=== PATIENT | male | born 1955 ===

== ENCOUNTER 2022-04-28 08:10 | Outpatient (REF) | payer MEDICARE, SELFPAY ==
--- NOTE | ~2022-04-28 | XR_ITS ---
EXAMINATION: XR KNEE AP STANDING CLINICAL INFORMATION: Bilateral knee pain COMPARISON: None TECHNIQUE: AP bilateral standing and lateral view of the knees was obtained. FINDINGS: Right: There is varus angulation. Bone alignment is otherwise normal. There is significant joint space narrowing at the medial femoral tibial joint. There is no joint effusion. Left: Bone alignment is normal. No fracture or dislocation is seen. There is joint space narrowing at the medial femoral tibial joint. There is no joint effusion. XR/XR knee standing BI IMPRESSION: Right: Varus angulation and marked joint space narrowing at the medial femoral tibial joint. Left: Moderate joint space narrowing at the femoral tibial joint.
[2022-04-28 11:35] LABS: MANUAL DIFF FLAG NO
[2022-04-28 11:45] LABS: Basophils Absolute Auto 0.1 X10*3/uL (0.0-0.2); Eosinophils Absolute Auto 0.2 X10*3/uL (0.0-0.4); Eosinophils Percent Auto 3.3 % (0-4); Hematocrit 44.4 % (42.0-52.0); Imm Gran Abs Auto 0.01 X10*3/uL (0.00-0.03); Imm Gran Pct Auto 0.1 % (0.0-0.4); Lymphocytes Percent Auto 42.5 % (20-40); Mean Corpuscular HGB Conc 31.5 g/dl (31.0-36.0); Mean Corpuscular Hemoglobin 28.5 pg (27.0-33.0); Mean Corpuscular Volume 90.2 fL (80.0-98.0); Mean Platelet Volume 10.4 fL (9.4-12.4); Monocytes Absolute Auto 0.5 X10*3/uL (0.1-1.2); Monocytes Percent Auto 6.5 % (2-11); Neutrophils Absolute Auto 3.2 x10*3/uL (2.0-8.3); Neutrophils Percent Auto 46.6 % (45-73); Platelet Count 238 X10*3/uL (160-400); Red Blood Count 4.92 X10*6/uL (4.60-5.80); Red Cell Distribution Width 12.8 % (11.0-16.0); White Blood Count 6.9 X10*3/uL (4.8-10.8)
[2022-04-28 11:47] LABS: Appearance Urine CLEAR; Color Urine YELLOW; Glucose Urine UA NEG (NEG); Leukocyte Esterase Urine NEG (NEG); Nitrite Urine NEG (NEG); PH 5.5 (5.0-8.0); Specific Gravity - Urine 1.025 (1.005-1.025); Urine Blood NEG (NEG); Urine Ketones NEG (NEG); Urine Protein NEG (NEG-TRACE)
[2022-04-28 12:28] LABS: Alanine Aminotransferase 17 U/L (0-40); Albumin Level 3.8 g/dL (3.5-5.0); Alkaline Phosphatase 63 U/L (39-117); Anion Gap 13 (12-20); Aspartate Amino Transferase 17 U/L (5-37); Bilirubin Total 0.6 mg/dL (0.0-1.0); Blood Urea Nitrogen 17 mg/dL (9-16); Calcium 8.9 mg/dL (8.4-10.2); Carbon Dioxide 25 mmol/L (22-29); Chloride 106 mmol/L (96-108); Cholesterol 217 mg/dL; Estimated Glomerular Filt Rate > 60; Glucose Fasting 99 mg/dL (60-99); HDL Cholesterol 51 mg/dL; LDL Cholesterol Calculated 133 mg/dl; Potassium 4.8 mmol/L (3.3-5.1); Sodium 139 mmol/L (135-145); Total Protein 6.8 g/dL (6.5-8.0); Triglycerides 168 mg/dL
[2022-04-28 12:29] LABS: Prostate Specific Antigen Scr 0.63 ng/mL (<0.05-4.0); TSH reflex Free T4 3.14 uIU/mL (0.32-4.0)
== END 2022-04-28 08:11 | disposition home or self-care (01) ==
LOC: HO.HMGCX 08:10
PROVIDERS: PCP Nurse Practitioner Family; Visit Provider Nurse Practitioner Family
DX: Z12.5 Encounter for screening for malignant neoplasm of prostate (principal); M25.562 Pain in left knee; I10 Essential (primary) hypertension
CPT/HCPCS: 36415; 73565; 80053; 80061; 81003; 84153; 84443; 85025

== ENCOUNTER → 2022-06-20 13:41 | Outpatient (REF) | payer MEDICARE, MEDICAID, SELFPAY ==
--- NOTE | 2022-06-20 13:49 | CA_ITS ---
Transthoracic Echocardiogram Patient (Last, First, Middle): Erik Banda, Gender: Male Date of : 1955 Age: 66 Procedure Date: 06/20/2022 Procedure Type: Transthoracic Echocardiogram Location: OP Height: 180.34 cm Weight: 126.1 kg BSA: 2.43 m2 Heart Rate: bpm BP: 130 / 70 mmHg Leaflet Distributor: TO Referring MD: Christopher Hill [facility] Symptoms: R01.1 - Cardiac murmur, unspecified Study Quality: Technically Difficult Conclusions: - Normal left ventricular size, thickness, and systolic function. The visually estimated ejection fraction is between 55-60%. - The basal inferior segment is akinetic. - Normal right ventricular cavity size and systolic function. Findings Left Ventricle Normal left ventricular size, thickness, and systolic function. The visually estimated ejection fraction is between 55-60%. There is evidence of regional wall motion abnormalities. Diastolic function is normal for age. Wall Motion Rest Echo Findings The basal inferior segment is akinetic. Right Ventricle Normal right ventricular cavity size and systolic function. Atria The left atrium is likely dilated. The right atrium is normal in size. Aortic Valve There is a normal trileaflet aortic valve. There is mild calcification of the aortic valve. There is no aortic valve stenosis. There is no aortic valve regurgitation. Mitral Valve Normal mitral valve structure and function. There is no mitral valve regurgitation. There is no mitral valve stenosis. Pulmonic Valve The pulmonic valve is likely normal. Tricuspid Valve Normal tricuspid valve structure and function. There is trace tricuspid valve regurgitation. Tricuspid regurgitation envelope is inadequate for calculation of right ventricular systolic pressure. Normal right atrial pressure. Great Vessels All visible segments of the aorta are normal in size. The visualized portions of the pulmonary artery and branches are normal. Venous The inferior vena cava is normal in size and collapses greater than 50% with inspiration. Pericardium/Pleural There is no evidence of pericardial effusion. Prior Study Comparison No prior study available for comparison. Measurements 2D Linear Measurements IVSd: 1.23 0.6-0.9/0.6-1.0 cm LVIDd: 4.63 3.9-5.3/4.2-5.9 cm LVIDd Index: 1.91 2.4-3.2/2.2-3.1 cm/m2 LVIDs: 2.86 2.0-3.6 cm LVPWd: 1.05 0.7-1.1 cm LA Diam: 3.50 2.7-3.8/3.0-4.0 cm LAIDs Index: 1.44 1.5-2.3 cm/m2 LV Mass: 239.91 67-162/88-224 g LV Mass Index: 98.73 43-95/49-115 g/m2 LVOT Diam: 2.20 3.0+(-)1.3 cm 2D Systolic Function EF 4C: 62.60 >55% EF 2C: 54.20 >55% EF BiP: 59.70 >55% Mitral Valve MV Pk E: 0.70 MV PK A: 0.75 MV Decel Time: 226.00 E/A: 0.90 E'Lateral: 11.70 E'Medial: 7.51 E/E' Med: 9.30 E/E' Lat: 6.00 PHT: 66.00 MVA PHT: 3.33 Decel [place]: 3.09 Aortic Valve AoV Pk Richard: 1.79 AoV Mn Richard: 1.31 AoV VTI: 0.37 AoV Pk Grad: 13.00 Aov Mn Grad: 7.00 IAIN Cont.VTI: 2.18 LVOT LVOT Pk Richard: 1.04 LVOT Mn Richard: 0.67 LVOT VTI: 0.21 LVOT Pk Grad: 4.00 LVOT Mn Grad: 2.00 LVOT Diam: 2.20 LVOT Area: 3.80 Diastolic Function MV Pk E: 0.70 MV Pk A: 0.75 E/A: 0.90 E'Medial: 7.51 E/E' Med: 9.30 E' Laterial: 11.70 E/E' Lat: 6.00 Right Ventricle TAPSE (mm): 24.40 TVS' Richard: 10.10 Tricuspid Valve TR Pk Richard: 2.14 TR Pk Grad: 18.00 RA Press: 3.00 Great Vessels Aorta Sinus of Valsalva: 3.53 2.0-3.5 cm Ao Asc: 3.20 2.1-3.4 cm Updated in Other Vendor System with Status of Final Benny Saunders MD electronically signed on 06/22/2022 6:10:24 PM with status of Final
== END ==
LOC: HO.CARD 13:41
PROVIDERS: PCP Nurse Practitioner Family; Visit Provider Nurse Practitioner Family
DX: R01.1 Cardiac murmur, unspecified (principal)
CPT/HCPCS: 93306; Q9957

== ENCOUNTER → 2022-07-03 11:37 | Outpatient (BNVA) | payer MEDICARE, SELFPAY | PROVIDERS: PCP Nurse Practitioner Family; Referring Provider Nurse Practitioner Family; Visit Provider Nurse Practitioner Family | DX: Z01.818 Encounter for other preprocedural examination (principal) | CPT/HCPCS: 99202; 99212 ==

== ENCOUNTER 2022-08-25 06:31 | Outpatient (REF) | payer MEDICARE, SELFPAY ==
--- NOTE | ~2022-08-25 | XR_ITS ---
EXAMINATION: BILATERAL KNEE X-RAY CLINICAL INFORMATION: Pain COMPARISON: Previous x-ray April 2022 TECHNIQUE: [place] view of both knees FINDINGS: Bone alignment is normal. No fracture or dislocation. The joint spaces appear normal. Normal soft tissues. XR/XR knee LT 1V IMPRESSION: Normal sunrise view of both knees.
--- NOTE | ~2022-08-25 | XR_ITS ---
EXAMINATION: BILATERAL KNEE X-RAY CLINICAL INFORMATION: Pain COMPARISON: Previous x-ray April 2022 TECHNIQUE: [place] view of both knees FINDINGS: Bone alignment is normal. No fracture or dislocation. The joint spaces appear normal. Normal soft tissues. XR/XR knee RT 1V IMPRESSION: Normal sunrise view of both knees.
== END 2022-08-25 06:32 | disposition home or self-care (01) ==
LOC: HO.HOSX 06:31
PROVIDERS: Visit Provider Physician Assistant
DX: M17.0 Bilateral primary osteoarthritis of knee (principal)
CPT/HCPCS: 73560; 99202

== ENCOUNTER 2022-11-07 07:55 | Outpatient (REF) | payer MEDICARE, SELFPAY ==
[2022-11-07 11:26] LABS: MANUAL DIFF FLAG NO
[2022-11-07 11:28] LABS: Appearance Urine Clear; Color Urine Yellow; Glucose Urine UA Negative (Negative); Leukocyte Esterase Urine Negative (Negative); Nitrite Urine Negative (Negative); Specific Gravity - Urine 1.015 (1.005-1.025); Urine Blood Negative (Negative); Urine Ketones Negative (Negative); Urine Protein Negative (Neg-Trace)
[2022-11-07 11:29] LABS: Basophils Absolute Auto 0.1 X10*3/uL (0.0-0.2); Basophils Percent Auto 1.2 % (0-2); Eosinophils Absolute Auto 0.2 X10*3/uL (0.0-0.4); Eosinophils Percent Auto 2.7 % (0-4); Hematocrit 44.6 % (42.0-52.0); Hemoglobin 14.1 g/dl (14.0-18.0); Imm Gran Abs Auto 0.01 X10*3/uL (0.00-0.03); Imm Gran Pct Auto 0.1 % (0.0-0.4); Lymphocytes Absolute Auto 2.9 X10*3/uL (1.2-4.9); Mean Corpuscular HGB Conc 31.6 g/dl (31.0-36.0); Mean Corpuscular Hemoglobin 28.6 pg (27.0-33.0); Mean Corpuscular Volume 90.5 fL (80.0-98.0); Mean Platelet Volume 10.5 fL (9.4-12.4); Monocytes Absolute Auto 0.5 X10*3/uL (0.1-1.2); Monocytes Percent Auto 6.1 % (2-11); Neutrophils Absolute Auto 3.8 x10*3/uL (2.0-8.3); Neutrophils Percent Auto 50.9 % (45-73); Platelet Count 237 X10*3/uL (160-400); Red Blood Count 4.93 X10*6/uL (4.60-5.80); Red Cell Distribution Width 12.9 % (11.0-16.0); White Blood Count 7.5 X10*3/uL (4.8-10.8)
[2022-11-07 12:17] LABS: Alanine Aminotransferase 14 U/L (0-40); Albumin Level 3.8 g/dL (3.5-5.0); Alkaline Phosphatase 68 U/L (39-117); Anion Gap 13 (12-20); Aspartate Amino Transferase 16 U/L (5-37); Bilirubin Total 0.6 mg/dL (0.0-1.0); Blood Urea Nitrogen 16 mg/dL (9-16); Calcium 8.8 mg/dL (8.4-10.2); Carbon Dioxide 26 mmol/L (22-29); Chloride 106 mmol/L (96-108); Cholesterol 186 mg/dL; Estimated Glomerular Filt Rate > 60; Glucose Fasting 100 mg/dL (60-99); HDL Cholesterol 57 mg/dL; LDL Cholesterol Calculated 101 mg/dl; Sodium 141 mmol/L (135-145); Total Protein 6.7 g/dL (6.5-8.0); Triglycerides 140 mg/dL
[2022-11-07 12:37] LABS: TSH reflex Free T4 3.48 uIU/mL (0.32-4.0)
== END 2022-11-07 07:56 | disposition home or self-care (01) ==
LOC: HO.HMGCLDS 07:55
PROVIDERS: PCP Nurse Practitioner Family; Visit Provider Nurse Practitioner Family
DX: I10 Essential (primary) hypertension (principal); E78.5 Hyperlipidemia, unspecified
CPT/HCPCS: 36415; 80053; 80061; 81003; 84443; 85025

== ENCOUNTER 2022-11-28 11:24 | Day surgery (SDC) | payer MEDICARE, SELFPAY ==
[2022-11-24 10:10] VITALS: BMI 40.8
--- NOTE | 2022-11-27 10:29 | HO.ANESPROP2 ---
Documented by User: Adelaide Juarez NP 11/27/22 10:33 HPI - Anesthesia Eval Consult details Narrative: 67yo M for Colonoscopy PMFSH Active Problems Active Problems: All Active Problems (Updated 11/24/22 @ 10:07 by Batsheva Gardner RN) HTN (hypertension) (Acute) Screening for prostate cancer (Acute) Screening for colon cancer (Acute) Murmur (Acute) Knee pain (Acute) Dyslipidemia (Acute) Osteoarthritis of knees, bilateral (Acute) Pre-op evaluation (Acute) Past Medical History Medical History (Updated 11/24/22 @ 10:07 by Batsheva Gardner RN) Elevated cholesterol HTN (hypertension) Murmur Osteoarthritis Family History Family History Mother Diabetes Brother Diabetes Heart attack Father Heart attack Surgical History Surgical History (Updated 11/28/22 @ 11:44 by Carmela Cardona RN) H/O colonoscopy Hx of tracheostomy Social History Social History Housing: Other (mobile home) Patient Tobacco Use Status: Never used Tobacco e-Cigarette/Vaping Use: Never Used Second Hand Smoke Exposure: No Use of substances other than those prescribed or required for medical reasons: No Are you DNR?: No Advance Directives: No Advance Directives Information Provided: Yes service: No Current occupational status: employed Current occupation: deliver [employer] Cognitive needs: No Hearing needs: No Vision needs: Yes Meds Allergies Allergy/AdvReac Type Severity Reaction Status Date / Time No Known Allergies Allergy Verified 11/05/22 13:10 Exam Exam Date and Time: November 27, 2022 1029 Height,Weight and Vital Signs: Height 5 ft 10 in Weight 129.274 kg Pertinent Lab Results Pertinent Lab Results: Laboratory Tests 11/07/22 11/07/22 08:00 08:00 WBC 7.5 Hgb 14.1 Hct 44.6 Plt Count 237 Sodium 141 Potassium 4.0 Chloride 106 Carbon Dioxide 26 BUN 16 Creatinine 0.85 Narrative Narrative: ECHO 06/2022 Conclusions: - Normal left ventricular size, thickness, and systolic function. The visually estimated ejection fraction is between 55-60%.? ? ? - The basal inferior segment is akinetic.? - Normal right ventricular cavity size and systolic function.? ? EKG 09/2022 NSR @ 67 Poor R wave progression No ST-T changes Assessment and Plan Assessment Anesthesia Assessment: Chart Reviewed Documented by User: Lazara Hu MD 11/28/22 12:43 PMFSH Past Medical History Medical History (Updated 11/24/22 @ 10:07 by Batsheva Gardner RN) Elevated cholesterol HTN (hypertension) Murmur Osteoarthritis Family History Family History Mother Diabetes Brother Diabetes Heart attack Father Heart attack Family history of problems with anesthesia: No Surgical History Surgical History (Updated 11/28/22 @ 11:44 by Carmela Cardona RN) H/O colonoscopy Hx of tracheostomy History of Problems with Anesthesia: No Social History Social History Housing: Other (mobile home) Patient Tobacco Use Status: Never used Tobacco e-Cigarette/Vaping Use: Never Used Second Hand Smoke Exposure: No Use of substances other than those prescribed or required for medical reasons: No Are you DNR?: No Advance Directives: No Advance Directives Information Provided: Yes service: No Current occupational status: employed Current occupation: [employer] Cognitive needs: No Hearing needs: No Vision needs: Yes Meds Allergies Allergy/AdvReac Type Severity Reaction Status Date / Time No Known Allergies Allergy Verified 11/05/22 13:10 Exam Airway Mallampati Class: III TM Dist: >3cm Neck ROM: Full Heart: rrr Lungs: cta Assessment and Plan Assessment Anesthesia Assessment: Anesthesia Plan Discussed Final Anesthetic Review Family History of Problems with Anesthesia: No History of Problems with Anesthesia: No NPO: Yes ASA Class: III Final Preanesthetic Review: No Changes in Pt Med Stat, Meds/Allgs Chart Reviewed, Consent Obtained/Reviewed and Anes Risks/Benef Reviewed Patient Risk: Intermediate Procedure Risk: Low Anesthetic Plan Anesthetic Plan: MAC: and Agree w/ Assess. and Plan Disposition: Standard PACU
[2022-11-28 11:47] VITALS: BMI 39.4
[2022-11-28 11:50] VITALS: BMI 39.4
[2022-11-28 11:51] VITALS: BP 133/76; PULSE 81; RESP 18; TEMP 36.2; O2SAT 98
--- NOTE | 2022-11-28 12:03 | MHC.SHP ---
Pre-Procedural Eval Section A Date of Service: 11/28/22 The patient is an INPATIENT: No The History & Physical has been completed within 30 days and I have reviewed it.: No Section B Chief Complaint: screening Details of Present Illness: Colon cancer screening Relevant Family History (Specify if Yes): No Relevant Social History: None Present Medications: see Short Stay Collaborative assessment Medical History: Significant History (Hyperlipidemia, hypertension, osteoarthritis) History of Previous Operations: Relevant previous surgery/procedure and date(s) (History of colonoscopy, history of tracheostomy) Allergies: Allergies Allergy/AdvReac Type Severity Reaction Status Date / Time No Known Allergies Allergy Verified 11/05/22 13:10 Review of Systems Sugical H&P ROS: Negative: Constitution, Cardiovascular, Respiratory and Gastrointestinal Exam Surgical H&P Exam: Normal: Heart, Normal: Lungs, Normal: Extremities and Normal: Abdomen Plan Diagnosis/Plan: Unchanged I have reviewed the history and physical and performed a pertinent physical examination on my patient. No changes have occurred unless specified. Time Spent With Patient Time: Total time managing care of this patient today ____ minutes.
--- NOTE | 2022-11-28 12:10 | PM.OP ---
Brief Operative Note Date of Service: 11/28/22 Pre-op diagnosis: COLON CANCER SCREENING Post-op diagnosis: other (COLON POLYPS, DIVERTICULOSIS, HEMORRHOIDS) Procedure: COLONOSCOPY TILL CECUM WITH BIOPSIES, SNARE POLYPECTOMY, SUBMUCOSAL INJECTION AND HEMOCLIP PLACEMENT Surgeon: Nathan Borges MD Anesthesia: MAC Was an Superintendent Greens used for this Procedure?: Yes Superintendent Greens: Karol Oreilly Estimated blood loss (mL): 0 Pathology: other ( A. cecal polyp B. proximal ascending colon polyp C. distal ascending colon polyp @ 80 cms D. transverse colon polyps (3)) Condition: stable Disposition: PACU
--- NOTE | 2022-11-28 12:10 | W.PM.OPN ---
Operative Note Operative Note Date of Service: 11/28/22 Narrative: Pre-op diagnosis: COLON CANCER SCREENING Post-op diagnosis:?other (COLON POLYPS, DIVERTICULOSIS, HEMORRHOIDS) Surgeon: Nathan Borges MD Anesthesia:?MAC COLONOSCOPY TILL CECUM WITH BIOPSIES, SNARE POLYPECTOMY, SUBMUCOSAL INJECTION AND HEMOCLIP X 3 PLACEMENT Consent: Indications for the procedure and potential complications of bleeding, perforation, reaction to medications and missed diagnosis were discussed with the patient and informed consent was obtained. Instrument: Olympus PCF H 190 L variable stiffness pediatric colonoscope Monitoring: Vital signs and clinical assessment, intermittent blood pressure monitoring, continuous EKG monitoring, Pulse oximetry and Carbon Dioxide monitoring were done throughout the procedure. Colon withdrawl time was 41 minutes. Procedure: The patient was placed in the left lateral decubitis position and pre-procedure medications were administered. After a digital rectal examination of the ano-rectum, the video colonoscope was inserted into the rectum and advanced through the colon to the cecum. The colonoscope was slowly withdrawn in a retrograde panoramic fashion and the colon mucosa was carefully examined including a retroflexed view of the rectum. Findings and interventions are described below. Procedure Difficulty: Without difficulty Findings: Terminal Ileum: Not evaluated Cecum: A 10 mm sessile polyp in the cecum over a fold - removed with a hot snare Ascending Colon: A 10-12 mm sessile polyp in the proximal AC removed with a hot snare. A 3 x 2 cms flat polyp in the distal AC at 80 cms - raised with 6 cc of normal saline and removed piece meal with a stiff snare. Margins of polypectomy site were treated with cautery using the snare tip, closed with three hemoclips and site was marked with shelly ink. A 2nd 8 to 10 mm sessile polyp in the distal AC removed with a hot snare. Transverse Colon: Three 12 to 15 mm sessile polyps removed with a hot snare Descending Colon: Moderate diverticulosis Sigmoid Colon: Moderate diverticulosis Rectum: Normal Ano-rectum: Moderate internal hemorrhoids Colon preparation: Good Impression and Post Procedure Diagnosis: Colonoscopy Findings: Seven medium to large sized polyps removed Moderate diverticulosis seen in the left colon Moderate hemorrhoids on retroflexed exam. A few smaller polyps in the transverse and left colon were not removed due to excessive length of the procedure Plan: Await pathology results Patient has an appointment on 12/12/12 in the [facility] with Deion,Becka D, [employer]. Repeat Colonoscopy interval based on path results - in 6 to 12 months if polyps are adenomatous (to check polypectomy site in the AC) and 5 years if polyps are hyperplastic. Above findings were reviewed with the patient and colon polyps and diverticulosis handouts were given in the discharge area
[2022-11-28] MEDS: Lactated Ringers 1,000 ML 100 ML IVCONT (12:11)
[2022-11-28 12:23] VITALS: BP 133/76; PULSE 81; RESP 18; TEMP 36.2; O2SAT 98
--- NOTE | 2022-11-28 13:12 | P.CONAN_ITS ---
HPI - Anesthesia Eval Consult details Narrative: 67 yr old for colon cancer carson MARKS Active Problems Active Problems: All Active Problems (Updated 11/24/22 @ 10:07 by Batsheva Gardner RN) HTN (hypertension) (Acute) Screening for prostate cancer (Acute) Screening for colon cancer (Acute) Murmur (Acute) Knee pain (Acute) Dyslipidemia (Acute) Osteoarthritis of knees, bilateral (Acute) Pre-op evaluation (Acute) Past Medical History Medical History (Updated 11/24/22 @ 10:07 by Batsheva Gardner RN) Elevated cholesterol HTN (hypertension) Murmur Osteoarthritis Family History Family History Mother Diabetes Brother Diabetes Heart attack Father Heart attack Family history of problems with anesthesia: No Surgical History Surgical History (Updated 11/28/22 @ 11:44 by Carmela Cardona RN) H/O colonoscopy Hx of tracheostomy History of Problems with Anesthesia: No Social History Social History Housing: Other (mobile home) Patient Tobacco Use Status: Never used Tobacco e-Cigarette/Vaping Use: Never Used Second Hand Smoke Exposure: No Use of substances other than those prescribed or required for medical reasons: No Are you DNR?: No Advance Directives: No Advance Directives Information Provided: Yes service: No Current occupational status: employed Current occupation: [employer] Cognitive needs: No Hearing needs: No Vision needs: Yes Meds Allergies Allergy/AdvReac Type Severity Reaction Status Date / Time No Known Allergies Allergy Verified 11/05/22 13:10 Active Medications: Current Medications Lactated Ringer's (Lr) 1,000 mls @ 100 mls/hr IVCONT .Q10H KENIA Last Admin: 11/28/22 12:11 Dose: 100 mls/hr Exam Exam Date and Time: November 28, 2022 1312 Height,Weight and Vital Signs: Height 5 ft 10 in Weight 124.738 kg Last Vital Signs Temp 97.1 F 11/28/22 12:23 Pulse 81 11/28/22 12:23 Resp 18 11/28/22 12:23 BP 133/76 11/28/22 12:23 Pulse Ox 98 11/28/22 12:23 O2 Del Method 11/28/22 12:23 Airway Mallampati Class: II TM Dist: >3cm Neck ROM: Full Heart: rrr Lungs: cta Assessment and Plan Assessment Anesthesia Assessment: Anesthesia Plan Discussed Final Anesthetic Review Family History of Problems with Anesthesia: No History of Problems with Anesthesia: No ASA Class: III Final Preanesthetic Review: No Changes in Pt Med Stat, Meds/Allgs Chart Reviewed, Consent Obtained/Reviewed and Anes Risks/Benef Reviewed Patient Risk: Intermediate Procedure Risk: Low Anesthetic Plan Anesthetic Plan: MAC: Disposition: Standard PACU
[2022-11-28 14:25] VITALS: BP 98/60; PULSE 89; RESP 17; TEMP 37.3; O2SAT 98
[2022-11-28 14:40] VITALS: BP 119/65; PULSE 70; RESP 18; TEMP 36.8; O2SAT 98
== END 2022-11-28 15:23 | disposition home or self-care (01) ==
PROVIDERS: PCP Nurse Practitioner Family; Visit Provider Internal Medicine Gastroenterology
PROC: 0DJD8ZZ Inspection of Lower Intestinal Tract, Via Natural or Artificial Opening Endoscopic (ICD-10-PCS; CPT 45378; principal; 2022-11-28 13:50)
DX: Z12.11 Encounter for screening for malignant neoplasm of colon (principal); D12.0 Benign neoplasm of cecum; D12.2 Benign neoplasm of ascending colon; D12.3 Benign neoplasm of transverse colon; K57.30 Diverticulosis of large intestine without perforation or abscess without bleeding; K64.8 Other hemorrhoids; I10 Essential (primary) hypertension; E78.5 Hyperlipidemia, unspecified; Z79.899 Other long term (current) drug therapy
CPT/HCPCS: 45385; 45380; 45381; 88305

== ENCOUNTER → 2022-12-12 11:15 | Outpatient (BNVA) | payer MEDICARE, SELFPAY | PROVIDERS: PCP Nurse Practitioner Family; Referring Provider Nurse Practitioner Family; Visit Provider Nurse Practitioner Family | DX: K57.90 Diverticulosis of intestine, part unspecified, without perforation or abscess without bleeding (principal); D36.9 Benign neoplasm, unspecified site; I10 Essential (primary) hypertension; E78.00 Pure hypercholesterolemia, unspecified; Z98.890 Other specified postprocedural states | CPT/HCPCS: 99212 ==

== ENCOUNTER 2023-09-30 13:13 | Outpatient (AMB) | payer MEDICARE, SELFPAY ==
--- NOTE | 2023-09-30 13:16 | MHC.PC.OV ---
Vital Signs 09/30/23 13:19 Height 5 ft 11 in Weight 288 lb 6 oz BMI 40.2 BP 122/80 Blood Pressure Location Lt brachial Position Sitting Pulse 76 Pulse Source Pulse Oximeter Pulse Oximetry (%) 98 Oxygen Delivery Method Room Air Intake Visit Reasons: Annual physical Intake Note: Patient here for physical exam and would like to talk about a cough that has been present for a while. Allergies No Known Allergies Allergy (Verified 09/30/23 13:19) Medication List - Last Reconciled 09/30/23 by JOSE Mitchell bisacodyl (Dulcolax (bisacodyl)) 10 mg (2 x 5 mg) PO ONCE 1 day lisinopril 10 mg PO DAILY polyethylene glycol 3350 (Miralax) 17 grams PO DAILY rosuvastatin 20 mg PO DAILY Tobacco use date assessed: 11/05/22 Fall risk assessment: No Falls in past year Last assessed Fall Risk: 09/30/23 Dental Screening Dental Screen Date: 09/30/23 Did you have a dental visit in the last 12 months?: No Did you have a dental problem in the last 6 months where you did not have access to dental care?: No Was dental information given to patient?: Yes HPI Annual physical HPI Details Pt is here for a PE. Will order labs. Colon screen is scheduled for next month. Due for PSA, will order. Denies dribbling with urination, weak stream, and frequent nocturia. [facility] Medical History Diverticulosis Tubular adenoma Murmur Osteoarthritis Elevated cholesterol HTN (hypertension) Surgical History Hx of tracheostomy H/O colonoscopy Family History Mother Diabetes Brother Diabetes Heart attack Father Heart attack Social History Housing: Other (mobile home) Patient Tobacco Use Status: Never used Tobacco e-Cigarette/Vaping Use: Never Used Second Hand Smoke Exposure: No service: No Current occupational status: employed Current occupation: [employer] Cognitive needs: No Hearing needs: No Vision needs: Yes Questionnaire PHQ-9 Over the last 2 weeks, how often have you been bothered by any of the following problems? 1. Little interest or pleasure in doing things: not at all 2. Feeling down, depressed, or hopeless: not at all 3. Trouble falling or staying asleep, or sleeping too much: not at all 4. Feeling tired or having little energy: not at all 5. Poor appetite or overeating: not at all 6. Feeling bad about yourself - or that you are a failure or have let yourself or your family down: not at all 7. Trouble concentrating on things, such as reading the newspaper or watching television: not at all 8. Moving or speaking so slowly that other people could have noticed. Or the opposite - being so fidgety or restless that you have been moving around a lot more than usual: not at all 9. Thoughts that you would be better off or of hurting yourself in some way: not at all Total score: 0 Depression Screening Interpretation: Negative Depression Screening Done: Yes 12157 - PHQ-9 Billing: Yes Source: Developed by Drs. Erik Mullins, Lexi Sandoval, Silver Moses and colleagues, with an educational iwona from [employer]. Thrive Questionnaire Date Thrive assessed: 09/30/23 I am a: Patient What is your living situation today?: I have a steady place to live Within the past 12 months, did the food you bought not last and you didn't have the money to get more?: Never true Within the past 12 months, did you worry whether your food would run out before you got money to buy more?: Never true Do you have trouble paying for medicines?: No Do you have trouble getting transportation to medical appointments?: Yes Do you have trouble paying your heating and electricity bill?: No Do you have trouble taking care of your child, family member or friend?: No Do you have trouble with day-to-day activities such as bathing, preparing meals, shopping, managing finances, etc.?: No Are you currently unemployed and looking for a job?: No Are you interested in more education?: No AUDIT C Alcohol Use Questionnaire (AUDIT-C) 1. How often do you have a drink containing alcohol?: 2-3 times a week 2. How many drinks containing alcohol do you have on a typical day when you are drinking?: 5 or 6 3. How often do you have six or more drinks on one occasion?: Never Total Score: 5 GLO-7 AMB Questionnaire GLO-7 Date GLO - 7 assessed: 09/30/23 Feeling nervous, anxious, or on edge: 0 = Not at all Not being able to stop or control worryin = Not at all Worrying too much about different things: 0 = Not at all Trouble relaxin = Not at all Being so restless that it is hard to sit still: 0 = Not at all Becoming easily annoyed or irritable: 0 = Not at all Feeling afraid as if something awful might happen: 0 = Not at all Total GLO-7 score (0-4 normal; 5-9 mild; 10-14 moderate; 15-21 severe): 0 Source: Developed by Drs. Erik Mullins, Lexi Sandoval, Silver Moses and colleagues, with an educational iwona from [employer]. GLO-7 Assessment Billing GLO-7 Assessment Tool: GLO-7 Assessment 63335 Review of Systems Const Denies chills and Denies fever(s) Eyes Denies blurry vision ENT Denies vertigo, Denies dizziness and Denies sore throat Card Denies chest pain at rest, Denies chest pain with activity, Denies diaphoresis, Denies dyspnea and Denies dyspnea on exertion Resp Denies cough, Denies dyspnea, Denies dyspnea on exertion and Denies wheezing GI Denies abdominal pain, Denies melena, Denies hematochezia, Denies constipation, Denies diarrhea and Denies loose stools Denies hematuria Musc Denies numbness and Denies tingling Skin/Breast Denies lesions Neuro Denies vertigo, Denies dizziness, Denies numbness and Denies tingling Psych Denies anxiety, Denies depression, Denies homicidal ideation, Denies suicidal ideation and Denies other (substance abuse) Aller/Immun Denies wheezing Physical exam (Primary Care) Vital Signs: Last Vital Signs Pulse 76 09/30/23 13:19 BP 122/80 09/30/23 13:19 Pulse Ox 98 09/30/23 13:19 Oxygen Delivery Method Room Air 09/30/23 13:19 BMI result Body Mass Index 40.2 Tobacco/Smoking Status: Tobacco use Status Tobacco use date assessed 11/05/22 09/30/23 13:18 Patient Tobacco Use Status Never used Tobacco 09/30/23 13:18 e-Cigarette/Vaping Use Never Used 09/30/23 13:18 PHQ-9: PHQ-9 Score PHQ-9: Total score 0 09/30/23 14:10 Depression Screening Interpretation: Negative Thrive Assessment: Date of Thrive Assessment Date Thrive assessed 09/30/23 09/30/23 14:10 Const General: cooperative Nutritional Appearance: obese morbidly obese Orientation/consciousness: patient oriented x3 HENMT Head: Yes normal to inspection, Yes normocephalic and Yes atraumatic Ears: TM's normal bilaterally Eyes General: appearance normal, both eyes and all related structures Alignment and Position: alignment normal and position normal Neck Neck: Yes normal visual inspection and Yes no lymphadenopathy Thyroid: Thyroid normal Resp Effort & Inspection: normal respiratory effort Auscultation: clear to auscultation bilaterally Cardio Rate: regular rate Rhythm: regular rhythm Heart sounds: S1 normal heart sound present, S2 normal heart sound present and Murmur heart sound present systolic (faint) GI Palpation (GI): Soft to palpation, nontender and Hernia present umbilical Auscultation: normal bowel sounds Male General Exam: Yes normal external exam Penis: normal penis Scrotum: scrotum normal, testes descended bilaterally and no inguinal hernias Testes: no testicular mass Skin Rashes: no rashes Neuro General: patient oriented x3, moves all extremities, no focal motor deficits and deep tendon reflexes 2+ bilaterally Romberg Test: Negative Psych Appearance: grossly normal Mental Status: mental status grossly normal Speech and movement: Normal speech and movement present Affect: normal affect Attitude: cooperative Thought process: Normal thought process present Thought content: Normal thought content present Insight: Good insight present (Psych) Judgement: Good judgement present (Psych) Assessment and Plan Assessment & Plan (1) Physical exam: Code(s): Z00.00 - Encounter for general adult medical examination without abnormal findings Plan: Labs ordered (2) Screening for prostate cancer: Code(s): Z12.5 - Encounter for screening for malignant neoplasm of prostate Plan: PSA ordered Plan The patient agreed to the use of a medical information officer for this encounter. Scribed for RUBEN PatelBC by Kely Hilton, medical information officer, on 09/30/2023 at 13:35 EST. Orders: Orders Complete Blood Count Auto Diff Today Z00.00 - Encounter for general adult medical examination without abnormal findings UA CC w/rflx Micro + Cult Today Z00.00 - Encounter for general adult medical examination without abnormal findings Lipid Panel Today Z00.00 - Encounter for general adult medical examination without abnormal findings Prostate Specific Antigen Scr Today Z12.5 - Encounter for screening for malignant neoplasm of prostate Comprehensive [place]. Panel Fast Today Z00.00 - Encounter for general adult medical examination without abnormal findings TSH reflex Free T4 Today Z00.00 - Encounter for general adult medical examination without abnormal findings Medications: Refilled lisinopril 10 mg PO DAILY 90 tabs 1RF Coding Level of Care Code Est Pt Prev Care >65y(67556) Diagnoses Physical exam Z00.00 Screening for prostate cancer Z12.5 Additional Codes GLO-7 Assessment Billing - GLO-7 Assessment Tool: GLO-7 Assessment 31898 ([id number])
[2023-09-30 13:19] VITALS: BP 122/80; PULSE 76; O2SAT 98; BMI 40.2
== END 2023-09-30 14:33 | disposition home or self-care (01) ==
PROVIDERS: PCP Nurse Practitioner Family; Visit Provider Nurse Practitioner Family
DX: Z00.00 Encounter for general adult medical examination without abnormal findings (principal); Z12.5 Encounter for screening for malignant neoplasm of prostate
CPT/HCPCS: 99397

== ENCOUNTER 2024-03-31 14:00 | Outpatient (AMB) | payer MEDICARE, SELFPAY ==
--- NOTE | 2024-03-31 14:12 | A.OFFPC_ITS ---
Vital Signs 03/31/24 14:14 03/31/24 14:46 Height 5 ft 11 in Weight 268 lb 8 oz BMI 37.4 BP 130/98 H 148/80 H Blood Pressure Location Lt brachial Rt brachial Position Sitting Pulse 72 Pulse Source Pulse Oximeter Pulse Oximetry (%) 97 Oxygen Delivery Method Room Air Intake Visit Reasons: 6 Month follow up Intake Note: Patient here to address constant cough that has been present for about 3-4 months. Allergies No Known Allergies Allergy (Verified 03/31/24 15:01) Medication List - Last Reconciled 03/31/24 by JOSE Mitchell bisacodyl (Dulcolax (bisacodyl)) 10 mg (2 x 5 mg) PO ONCE 1 day irbesartan 75 mg PO DAILY polyethylene glycol 3350 (Miralax) 17 grams PO DAILY rosuvastatin 20 mg PO DAILY Tobacco use date assessed: 03/31/24 Fall risk assessment: No Falls in past year Last assessed Fall Risk: 03/31/24 Dental Screening Dental Screen Date: 03/31/24 Did you have a dental visit in the last 12 months?: No Did you have a dental problem in the last 6 months where you did not have access to dental care?: No Was dental information given to patient?: No HPI 6 Month follow up HPI Details HTN: Blood pressure is managed with lisinopril 10mg. Pt reports an ongoing cough. ? if related to lisinopril. Will stop this and start irbesartan 75mg. Will have pt monitor his BP at home and drop off readings. Denies chest pain, shortness of breath, headache, dizziness, and blurred vision. Pt has been working on his diet and portion sizes. [facility] Medical History Diverticulosis Tubular adenoma Murmur Osteoarthritis Elevated cholesterol HTN (hypertension) Surgical History Hx of tracheostomy H/O colonoscopy Family History Mother Diabetes Brother Diabetes Heart attack Father Heart attack Social History Housing: Other (mobile home) Patient Tobacco Use Status: Never used Tobacco e-Cigarette/Vaping Use: Never Used Second Hand Smoke Exposure: No service: No Current occupational status: employed Current occupation: [employer] Cognitive needs: No Hearing needs: No Vision needs: Yes Questionnaire PHQ-9 Over the last 2 weeks, how often have you been bothered by any of the following problems? 61264 - PHQ-9 Billing: Patient declined-do not bill Source: Developed by Drs. Erik Mullins, Lexi Sandoval, Silver Moses and colleagues, with an educational iwona from [employer]. Thrive Questionnaire Date Thrive assessed: 09/30/23 AUDIT C Alcohol Use Questionnaire (AUDIT-C) 1. How often do you have a drink containing alcohol?: 2-3 times a week 2. How many drinks containing alcohol do you have on a typical day when you are drinking?: 1 or 2 3. How often do you have six or more drinks on one occasion?: Never Total Score: 3 Score Reviewed/Action Taken: No GLO-7 AMB Questionnaire GLO-7 Date GLO - 7 assessed: 09/30/23 Source: Developed by Drs. Erik Mullins, Lexi Sandoval, Silver Moses and colleagues, with an educational iwona from [employer]. GLO-7 Assessment Billing GLO-7 Assessment Tool: pt declined-do not bill Review of Systems Const Reports as per HPI Physical exam (Primary Care) Vital Signs: Last Vital Signs Pulse 72 03/31/24 14:14 BP 130/98 H 03/31/24 14:14 Pulse Ox 97 03/31/24 14:14 Oxygen Delivery Method Room Air 03/31/24 14:14 BMI result Body Mass Index 37.4 Tobacco/Smoking Status: Tobacco use Status Tobacco use date assessed 03/31/24 03/31/24 14:19 Patient Tobacco Use Status Never used Tobacco 03/31/24 14:12 e-Cigarette/Vaping Use Never Used 03/31/24 14:12 Thrive Assessment: Date of Thrive Assessment Date Thrive assessed 09/30/23 03/31/24 14:12 Const General: cooperative Nutritional Appearance: obese Orientation/consciousness: patient oriented x3 Resp Effort & Inspection: normal respiratory effort Auscultation: clear to auscultation bilaterally Cardio Rate: regular rate Rhythm: regular rhythm Heart sounds: S1 normal heart sound present and Murmur heart sound present systolic (faint) Neuro General: patient oriented x3 Extrem Right lower extremity: edema (trace) Left lower extremity: edema (trace) Psych Appearance: grossly normal Mental Status: mental status grossly normal Speech and movement: Normal speech and movement present Affect: normal affect Attitude: cooperative Thought process: Normal thought process present Thought content: Normal thought content present Insight: Good insight present (Psych) Judgement: Good judgement present (Psych) Assessment and Plan Assessment & Plan (1) HTN (hypertension): Code(s): I10 - Essential (primary) hypertension Plan: stopping lisinopril, starting irbesartan, labs getting drawn today, pt will drop off BPs in the next month Plan The patient agreed to the use of a medical affairs specialist for this encounter. Scribed for JOSE Patel by Kely Hilton medical affairs specialist, on 03/31/2024 at 14:35 EST. Medications: New irbesartan 75 mg PO DAILY 90 tabs 0RF Discontinued lisinopril Discontinued Reason: Doctor's Order 10 mg PO DAILY 90 tabs 1RF Coding Level of Care Code Est Pt Level 3 (42964) Diagnoses HTN (hypertension) I10
[2024-03-31 14:14] VITALS: BP 130/98; PULSE 72; O2SAT 97; BMI 37.4
[2024-03-31 14:46] VITALS: BP 148/80
== END 2024-03-31 15:17 | disposition home or self-care (01) ==
PROVIDERS: PCP Nurse Practitioner Family; Visit Provider Nurse Practitioner Family
DX: I10 Essential (primary) hypertension (principal)
CPT/HCPCS: 99213

== ENCOUNTER 2024-03-31 15:01 | Outpatient (REF) | payer MEDICARE, SELFPAY ==
[2024-03-31 15:57] LABS: MANUAL DIFF FLAG NO
[2024-03-31 16:10] LABS: Basophils Absolute Auto 0.1 X10*3/uL (0.0-0.2); Basophils Percent Auto 1.3 % (0-2); Eosinophils Absolute Auto 0.2 X10*3/uL (0.0-0.4); Eosinophils Percent Auto 2.3 % (0-4); Imm Gran Abs Auto 0.02 X10*3/uL (0.00-0.03); Imm Gran Pct Auto 0.3 % (0.0-0.4); Lymphocytes Absolute Auto 2.4 X10*3/uL (1.2-4.9); Lymphocytes Percent Auto 36.9 % (20-40); Mean Corpuscular HGB Conc 32.6 g/dl (31.0-36.0); Mean Platelet Volume 10.3 fL (9.4-12.4); Monocytes Absolute Auto 0.5 X10*3/uL (0.1-1.2); Monocytes Percent Auto 8.3 % (2-11); Neutrophils Absolute Auto 3.3 x10*3/uL (2.0-8.3); Neutrophils Percent Auto 50.9 % (45-73); Platelet Count 239 X10*3/uL (160-400); Red Blood Count 4.83 X10*6/uL (4.60-5.80); Red Cell Distribution Width 13.2 % (11.0-16.0); White Blood Count 6.4 X10*3/uL (4.8-10.8)
[2024-03-31 16:30] LABS: Alanine Aminotransferase 18 U/L (0-40); Albumin Level 3.8 g/dL (3.5-5.0); Alkaline Phosphatase 64 U/L (39-117); Anion Gap 13 (12-20); Aspartate Amino Transferase 17 U/L (5-37); Bilirubin Total 0.6 mg/dL (0.0-1.0); Blood Urea Nitrogen 15 mg/dL (9-16); Calcium 9.4 mg/dL (8.4-10.2); Carbon Dioxide 27 mmol/L (22-29); Chloride 105 mmol/L (96-108); Cholesterol 219 mg/dL (<200); Estimated Glomerular Filt Rate > 60; Glucose Fasting 109 mg/dL (60-99); HDL Cholesterol 57 mg/dL (>40); LDL Cholesterol Calculated 134 mg/dL (<100); Potassium 4.7 mmol/L (3.3-5.1); Sodium 140 mmol/L (135-145); Total Protein 7.1 g/dL (6.5-8.0); Triglycerides 142 mg/dL (<150)
[2024-03-31 16:39] LABS: Prostate Specific Antigen Scr 0.56 ng/mL (<0.05-4.0)
[2024-03-31 16:45] LABS: TSH reflex Free T4 1.72 uIU/mL (0.32-4.0)
[2024-03-31 17:00] LABS: Appearance Urine Clear; Color Urine Yellow; Glucose Urine UA Negative (Negative); Leukocyte Esterase Urine Negative (Negative); Nitrite Urine Negative (Negative); PH 6.5 (5.0-9.0); Specific Gravity - Urine 1.015 (1.005-1.025); Urine Blood Negative (Negative); Urine Ketones Negative (Negative); Urine Protein Negative (Neg-Trace)
== END 2024-03-31 15:02 | disposition home or self-care (01) ==
LOC: HO.HMGCLDS 15:01
PROVIDERS: PCP Nurse Practitioner Family; Visit Provider Nurse Practitioner Family
DX: Z00.00 Encounter for general adult medical examination without abnormal findings (principal); Z12.5 Encounter for screening for malignant neoplasm of prostate
CPT/HCPCS: 36415; 80053; 80061; 81003; 84153; 84443; 85025

== ENCOUNTER 2024-10-17 12:37 | Outpatient (AMB) | payer MEDICARE, SELFPAY ==
--- NOTE | 2024-10-17 12:42 | A.OFFPC_ITS ---
Vital Signs 10/17/24 12:43 Height 5 ft 11 in Weight 288 lb BMI 40.2 BP 122/80 Blood Pressure Location Rt brachial Position Sitting Pulse 74 Pulse Source Pulse Oximeter Pulse Oximetry (%) 98 Intake Visit Reasons: PE Intake Note: pt is here for PE Allergies No Known Allergies Allergy (Verified 10/17/24 13:24) Medication List - Last Reconciled 10/17/24 by Christopher Hill [facility] irbesartan 150 mg PO DAILY rosuvastatin 40 mg PO DAILY Tobacco use date assessed: 03/31/24 Fall risk assessment: No Falls in past year Last assessed Fall Risk: 10/17/24 Dental Screening Dental Screen Date: 03/31/24 HPI PE HPI Details History of Present Illness The patient is a 69-year-old male presenting for an annual PE. He has been managing essential hypertension under his care and states that his limbs exhibit minimal edema, characterized as trace. Additionally, the patient has been managing a small umbilical hernia for over twenty years, with no noted exacerbation in symptoms or size during the conversation. He denies swelling of the legs and mentions no considerable lifestyle changes since beginning to use a treadmill periodically. Health Maintenance - Blood pressure monitoring and consider ation of device calibration suggested. - Lifestyle modification counseling for portion control in diet. - Encouragement to continue using the tr eadmill to improve exercise tolerance. - Upcoming laboratory tests scheduled fo r further wellness evaluation. - Counseling regarding the potential use fulness of flu vaccination, which is currently unavailable. Social History - Employment: Still working full-time wi th no immediate plans to retire. - Exercise: Owns a treadmill, but descri bes limited use. Encouraged to increase activity to improve exercise tolerance. - Family history: Non-smoker in a family of smokers; middle brother had a stroke. - Dietary habits: Acknowledges challenge s with portion control and tendency to eat large meals. Review of Systems - Constitutional: Denies fever, chills. - Cardiovascular: Denies chest pain, rep orts occasional muscle spasm. - Respiratory: Denies shortness of breat h. - Genitourinary: Denies urinary problems . - No other systems were reported with is sues or complaints. Physical Exam General: Cooperative, healthy appearing, comfortable, no acute distress and well developed, obese Orientation: Patient oriented x3 Limitations: No limitations Head: Normal to inspection Ears: Hearing grossly normal bilaterally Nose: Normal external nose present Face and sinus: Normal facial exam Eyes: Appearance normal, both eyes and all related structures Neck: Normal visual inspection and Yes full ROM Respiratory: Normal respiratory effort and able to speak in complete sentences. Clear to auscultation bilaterally Cardiovascular: Regular rate and rhythm. Normal S1 and S2, faint systolic murmur GI: Normal to inspection. Soft to palpation and nontender. Small umbilical hernia noted Skin: No rashes or lesions noted Neuro: Patient oriented x3 Extremities: Normal to inspection, trace edema in lower extremities Results Plan - Monitor blood pressure regularly; cons ider recalibrating home equipment. - Lumbar muscle spasm to be managed with activity adjustments and monitoring. - The faint systolic murmur to be follow ed regularly for any changes. - Proceed with pending laboratory invest igations for routine wellness check. - [employer] the patient on portion control strategies to aid in weight management. - Continue monitoring umbilical hernia f or any changes in size or symptoms. - Encourage the use of treadmill to enha nce physical activity and cardiovascular health. Patient was informed and verbally consented to the use of an ambient scribe for clinic note documentation during this visit. Discussion Notes I discussed with the patient the findings of a faint systolic murmur and trace edema in the lower extremities. We reviewed the importance of blood pressure control and how to appropriately monitor it both at home and in clinical settings. I advised that his current symptoms, such as the lumbar muscle spasm, are manageable with regular physical activity and monitoring. I discussed dietary recommendations emphasizing portion control to maintain optimal weight and highlighted the preventative aspect of utilizing treadmills for improving physical health. We also discussed scheduling his laboratory work to provide baseline data for further health maintenance evaluations. The patient was also advised to await the availability of the flu vaccine. Patient Instructions - Schedule and attend pending laboratory tests on an empty stomach. - Continue exercising using the treadmil l to improve fitness. - Monitor blood pressure regularly and f ollow instructions regarding device calibration. - Practice portion control in diet to ai d in weight management. - Report any new or worsening symptoms, particularly for blood pressure changes or muscle spasms. - Follow up in six months for routine ev aluation and to discuss lab results. - Consider flu vaccination when availabl eNila [facility] Medical History Diverticulosis Tubular adenoma Murmur Osteoarthritis Elevated cholesterol HTN (hypertension) Surgical History Hx of tracheostomy H/O colonoscopy Family History Mother Diabetes Brother Diabetes Heart attack Father Heart attack Social History Housing: Other (mobile home) Patient Tobacco Use Status: Never used Tobacco e-Cigarette/Vaping Use: Never Used Second Hand Smoke Exposure: No service: No Current occupational status: employed Current occupation: deliver [employer] Cognitive needs: No Hearing needs: No Vision needs: Yes Questionnaire Thrive Questionnaire Date Thrive assessed: 10/17/24 I am a: Patient What is your living situation today?: I have a steady place to live Within the past 12 months, did the food you bought not last and you didn't have the money to get more?: Never true Within the past 12 months, did you worry whether your food would run out before you got money to buy more?: Never true Do you have trouble paying for medicines?: No Do you have trouble getting transportation to medical appointments?: Yes Do you have trouble paying your heating and electricity bill?: No Do you have trouble taking care of your child, family member or friend?: No Do you have trouble with day-to-day activities such as bathing, preparing meals, shopping, managing finances, etc.?: No Are you currently unemployed and looking for a job?: No Are you interested in more education?: No THRIVE Score: 1 GLO-7 AMB Questionnaire GLO-7 Date GLO - 7 assessed: 10/17/24 Feeling nervous, anxious, or on edge: 0 = Not at all Not being able to stop or control worryin = Not at all Worrying too much about different things: 0 = Not at all Trouble relaxin = Not at all Being so restless that it is hard to sit still: 0 = Not at all Becoming easily annoyed or irritable: 0 = Not at all Feeling afraid as if something awful might happen: 0 = Not at all Total GLO-7 score (0-4 normal; 5-9 mild; 10-14 moderate; 15-21 severe): 0 Source: Developed by Drs. Erik Mullins, Lexi Sandoval, Silver Moses and colleagues, with an educational iwona from [employer]. GLO-7 Assessment Billing GLO-7 Assessment Tool: GLO-7 Assessment 23656 Physical exam (Primary Care) Vital Signs: Last Vital Signs Pulse 74 10/17/24 12:43 BP 122/80 10/17/24 12:43 Pulse Ox 98 10/17/24 12:43 BMI result Body Mass Index 40.2 Tobacco/Smoking Status: Tobacco use Status Tobacco use date assessed 03/31/24 10/17/24 12:46 Patient Tobacco Use Status Never used Tobacco 10/17/24 12:46 e-Cigarette/Vaping Use Never Used 10/17/24 12:46 Thrive Assessment: Date of Thrive Assessment Date Thrive assessed 10/17/24 10/17/24 12:53 Coding Level of Care Code Est Pt Prev Care >65y(94162) Diagnoses Tubular adenoma D36.9 Screening for colon cancer Z12.11 Physical exam Z00.00 Screening for prostate cancer Z12.5 Additional Codes GLO-7 Assessment Billing - GLO-7 Assessment Tool: GLO-7 Assessment 40922 ([id number]) Assessment & Plan Assessment & Plan (1) Tubular adenoma: Code(s): D36.9 - Benign neoplasm, unspecified site Category: Medical (2) Screening for colon cancer: Code(s): Z12.11 - Encounter for screening for malignant neoplasm of colon Category: Medical (3) Physical exam: Code(s): Z00.00 - Encounter for general adult medical examination without abnormal findings Category: Medical (4) Screening for prostate cancer: Code(s): Z12.5 - Encounter for screening for malignant neoplasm of prostate Category: Medical Plan . Orders: Orders Comprehensive [place]. Panel Fast Today Z00.00 - Encounter for general adult medical examination without abnormal findings Prostate Specific Antigen Scr Today Z12.5 - Encounter for screening for malignant neoplasm of prostate Complete Blood Count Auto Diff Today Z00.00 - Encounter for general adult medical examination without abnormal findings TSH reflex Free T4 Today Z00.00 - Encounter for general adult medical examination without abnormal findings UA CC w/rflx Micro + Cult Today Z00.00 - Encounter for general adult medical examination without abnormal findings Lipid Panel Today Z00.00 - Encounter for general adult medical examination without abnormal findings Referrals Gastroenterology Referral D36.9 - Benign neoplasm, unspecified site, Z12.11 - Encounter for screening for malignant neoplasm of colon
[2024-10-17 12:43] VITALS: BP 122/80; PULSE 74; O2SAT 98; BMI 40.2
== END 2024-10-17 13:35 | disposition home or self-care (01) ==
PROVIDERS: PCP Nurse Practitioner Family; Visit Provider Nurse Practitioner Family
DX: D36.9 Benign neoplasm, unspecified site (principal); Z12.11 Encounter for screening for malignant neoplasm of colon; Z00.00 Encounter for general adult medical examination without abnormal findings; Z12.5 Encounter for screening for malignant neoplasm of prostate

== ENCOUNTER 2024-10-17 12:37 | Outpatient (REF) | payer MEDICARE, SELFPAY ==
[2024-10-17 16:30] LABS: MANUAL DIFF FLAG NO
[2024-10-17 16:31] LABS: Appearance Urine Clear; Color Urine Yellow; Glucose Urine UA Negative (Negative); Leukocyte Esterase Urine Negative (Negative); Nitrite Urine Negative (Negative); PH 5.5 (5.0-9.0); Specific Gravity - Urine 1.025 (1.005-1.025); Urine Blood Negative (Negative); Urine Ketones Negative (Negative); Urine Protein Negative (Neg-Trace)
[2024-10-17 16:34] LABS: Basophils Absolute Auto 0.1 X10*3/uL (0.0-0.2); Eosinophils Absolute Auto 0.2 X10*3/uL (0.0-0.4); Eosinophils Percent Auto 2.2 % (0-4); Hemoglobin 13.7 g/dl (14.0-18.0); Imm Gran Abs Auto 0.02 X10*3/uL (0.00-0.03); Imm Gran Pct Auto 0.3 % (0.0-0.4); Lymphocytes Absolute Auto 2.3 X10*3/uL (1.2-4.9); Lymphocytes Percent Auto 34.5 % (20-40); Mean Corpuscular HGB Conc 33.4 g/dl (31.0-36.0); Mean Corpuscular Hemoglobin 29.3 pg (27.0-33.0); Mean Corpuscular Volume 87.6 fL (80.0-98.0); Mean Platelet Volume 10.2 fL (9.4-12.4); Monocytes Absolute Auto 0.4 X10*3/uL (0.1-1.2); Monocytes Percent Auto 6.4 % (2-11); Neutrophils Absolute Auto 3.7 x10*3/uL (2.0-8.3); Neutrophils Percent Auto 55.6 % (45-73); Platelet Count 217 X10*3/uL (160-400); Red Blood Count 4.68 X10*6/uL (4.60-5.80); Red Cell Distribution Width 13.2 % (11.0-16.0); White Blood Count 6.7 X10*3/uL (4.8-10.8)
[2024-10-17 17:14] LABS: Prostate Specific Antigen Scr 0.62 ng/mL (<0.05-4.0)
[2024-10-17 17:19] LABS: Alanine Aminotransferase 19 U/L (0-40); Albumin Level 3.6 g/dL (3.5-5.0); Alkaline Phosphatase 60 U/L (39-117); Anion Gap 10 (12-20); Aspartate Amino Transferase 22 U/L (5-37); Bilirubin Total 0.6 mg/dL (0.0-1.0); Blood Urea Nitrogen 18 mg/dL (9-16); Calcium 8.5 mg/dL (8.4-10.2); Carbon Dioxide 25 mmol/L (22-29); Chloride 110 mmol/L (96-108); Cholesterol 145 mg/dL (<200); Estimated Glomerular Filt Rate > 60; Glucose Fasting 111 mg/dL (60-99); HDL Cholesterol 47 mg/dL (>40); LDL Cholesterol Calculated 74 mg/dL (<100); Potassium 4.5 mmol/L (3.3-5.1); Sodium 140 mmol/L (135-145); Total Protein 6.7 g/dL (6.5-8.0); Triglycerides 122 mg/dL (<150)
[2024-10-17 17:26] LABS: TSH reflex Free T4 1.79 uIU/mL (0.32-4.0)
== END 2024-10-17 12:38 | disposition home or self-care (01) ==
LOC: HO.HMGCLDS 12:37
PROVIDERS: PCP Nurse Practitioner Family; Visit Provider Nurse Practitioner Family
DX: Z00.00 Encounter for general adult medical examination without abnormal findings (principal); I10 Essential (primary) hypertension; D36.9 Benign neoplasm, unspecified site; Z12.5 Encounter for screening for malignant neoplasm of prostate
CPT/HCPCS: 36415; 80053; 80061; 81003; 84153; 84443; 85025; 96127; 99397

== ENCOUNTER 2025-04-20 11:17 | Outpatient (AMB) | payer MEDICARE, SELFPAY ==
[2025-04-20 11:31] VITALS: BP 118/78; PULSE 79; O2SAT 98; BMI 41.0
--- NOTE | 2025-04-20 11:31 | A.OFFPC_ITS ---
Vital Signs 04/20/25 11:31 Height 5 ft 11 in Weight 294 lb BMI 41.0 BP 118/78 Blood Pressure Location Lt brachial Position Sitting Pulse 79 Pulse Source Pulse Oximeter Pulse Oximetry (%) 98 Intake Visit Reasons: 6 months f/up [employer] Gar[employer] Required: No Allergies No Known Allergies Allergy (Verified 04/20/25 11:55) Medication List - Last Reconciled 04/20/25 by [facility]- irbesartan 150 mg PO DAILY rosuvastatin 40 mg PO DAILY Tobacco use date assessed: 04/20/25 Fall risk assessment: 1 Fall in past year Last assessed Fall Risk: 04/20/25 Dental Screening Dental Screen Date: 04/20/25 Did you have a dental visit in the last 12 months?: Yes Did you have a dental problem in the last 6 months where you did not have access to dental care?: No Was dental information given to patient?: Patient has dentist HPI 6 months f/up HPI Details Chief Complaint The patient presents for follow-up management of hypertension, hyperlipidemia, and morbid obesity. History of Present Illness The patient is a 69-year-old male presenting with hypertension, hyperlipidemia, and morbid obesity. He denies any chest pain or increased shortness of breath, although he experiences dyspnea with heavy exertion, which is attributed to his morbid obesity. The patient is currently on a statin for hyperlipidemia management and is scheduled for fasting labs today to monitor his condition. A significant goal discussed is weight loss, and the patient is considering a GLP-1 agonist, pending insurance coverage confirmation. VSS Social History Health Maintenance Review of Systems - Cardiovascular: Denies chest pain - Respiratory: Denies increased shortnes s of breath, reports dyspnea with heavy exertion Physical Exam General: Cooperative, healthy appearing, comfortable, no acute distress and well developed, morbidly obese Orientation: Patient oriented x3 Limitations: No limitations Head: Normal to inspection Ears: Hearing grossly normal bilaterally Nose: Normal external nose present Face and sinus: Normal facial exam Eyes: Appearance normal, both eyes and all related structures Neck: Normal visual inspection and Yes full ROM. No carotid bruits noted Respiratory: Normal respiratory effort and able to speak in complete sentences. Clear to auscultation bilaterally Cardiovascular: Regular rate and rhythm. Normal S1 and S2 GI: Normal to inspection. Soft to palpation and nontender Skin: No rashes or lesions noted Neuro: Patient oriented x3 Extremities: Normal to inspection Results Plan The patient will undergo fasting laboratory tests today to assess his lipid profile and other relevant parameters. Weight loss is a primary goal, and the patient is advised to contact his insurance provider to determine coverage for a GLP-1 agonist, which is considered a suitable option for his condition. Discussion Notes I discussed with the patient the importance of weight loss and the potential benefits of a GLP-1 agonist for managing his obesity, pending insurance coverage. We also reviewed the plan for fasting labs to monitor his hyperlipidemia. Patient Instructions - Schedule and complete fasting laborato ry tests as planned. - Contact your insurance provider to jocelyne ck coverage for a GLP-1 agonist. [facility] Medical History Diverticulosis Tubular adenoma Murmur Osteoarthritis Elevated cholesterol HTN (hypertension) Surgical History Hx of tracheostomy H/O colonoscopy Family History Mother Diabetes Brother Diabetes Heart attack Father Heart attack Social History Housing: Other (mobile home) Patient Tobacco Use Status: Never used Tobacco e-Cigarette/Vaping Use: Never Used Second Hand Smoke Exposure: No service: No Current occupational status: employed Current occupation: [employer] Cognitive needs: No Hearing needs: No Vision needs: Yes Questionnaire PHQ-9 Over the last 2 weeks, how often have you been bothered by any of the following problems? 77822 - PHQ-9 Billing: Patient declined-do not bill Source: Developed by Drs. Erik Mullins, Lexi Sandoval, Silver Moses and colleagues, with an educational iwona from [employer] Thrive Questionnaire Date Thrive assessed: 04/20/25 I am a: Patient What is your living situation today?: I have a steady place to live Within the past 12 months, did the food you bought not last and you didn't have the money to get more?: Never true Within the past 12 months, did you worry whether your food would run out before you got money to buy more?: Never true Do you have trouble paying for medicines?: No Do you have trouble getting transportation to medical appointments?: Yes Do you have trouble paying your heating and electricity bill?: No Do you have trouble taking care of your child, family member or friend?: No Do you have trouble with day-to-day activities such as bathing, preparing meals, shopping, managing finances, etc.?: No Are you currently unemployed and looking for a job?: No Are you interested in more education?: No THRIVE Score: 1 AUDIT C Alcohol Use Questionnaire (AUDIT-C) 1. How often do you have a drink containing alcohol?: 2-3 times a week 2. How many drinks containing alcohol do you have on a typical day when you are drinking?: 1 or 2 3. How often do you have six or more drinks on one occasion?: Never Total Score: 3 Score Reviewed/Action Taken: Yes GLO-7 AMB Questionnaire GLO-7 Date GLO - 7 assessed: 04/20/25 Feeling nervous, anxious, or on edge: 0 = Not at all Not being able to stop or control worryin = Not at all Worrying too much about different things: 0 = Not at all Trouble relaxin = Not at all Being so restless that it is hard to sit still: 0 = Not at all Becoming easily annoyed or irritable: 0 = Not at all Feeling afraid as if something awful might happen: 0 = Not at all Total GLO-7 score (0-4 normal; 5-9 mild; 10-14 moderate; 15-21 severe): 0 Source: Developed by Drs. Erik Mullins, Lexi Sandoval, Silver Moses and colleagues, with an educational iwona from [employer] GLO-7 Assessment Billing GLO-7 Assessment Tool: GLO-7 Assessment 36750 Physical exam (Primary Care) Vital Signs: Last Vital Signs Pulse 79 04/20/25 11:31 BP 118/78 04/20/25 11:31 Pulse Ox 98 04/20/25 11:31 BMI result Body Mass Index 41.0 Tobacco/Smoking Status: Tobacco use Status Tobacco use date assessed 04/20/25 04/20/25 11:33 Patient Tobacco Use Status Never used Tobacco 04/20/25 11:33 e-Cigarette/Vaping Use Never Used 04/20/25 11:33 Thrive Assessment: Date of Thrive Assessment Date Thrive assessed 04/20/25 04/20/25 11:33 Coding Level of Care Code Est Pt Level 3 (21680) Diagnoses Dyslipidemia E78.5 HTN (hypertension) I10 Additional Codes GLO-7 Assessment Billing - GLO-7 Assessment Tool: GLO-7 Assessment 70649 ([id number]) Assessment & Plan Assessment & Plan (1) Dyslipidemia: Code(s): E78.5 - Hyperlipidemia, unspecified Category: Medical (2) HTN (hypertension): Code(s): I10 - Essential (primary) hypertension Category: Medical Plan . Orders: Orders Lipid Panel Today E78.5 - Hyperlipidemia, unspecified
== END 2025-04-20 12:01 | disposition home or self-care (01) ==
PROVIDERS: PCP Nurse Practitioner Family; Visit Provider Nurse Practitioner Family
DX: E78.5 Hyperlipidemia, unspecified (principal); I10 Essential (primary) hypertension

== ENCOUNTER 2025-04-20 11:17 | Outpatient (REF) | payer MEDICARE, SELFPAY ==
[2025-04-20 13:02] LABS: MANUAL DIFF FLAG NO
[2025-04-20 13:07] LABS: Basophils Absolute Auto 0.1 X10*3/uL (0.0-0.2); Basophils Percent Auto 1.4 % (0-2); Eosinophils Absolute Auto 0.1 X10*3/uL (0.0-0.4); Eosinophils Percent Auto 1.5 % (0-4); Hematocrit 41.5 % (42.0-52.0); Hemoglobin 13.6 g/dl (14.0-18.0); Imm Gran Abs Auto 0.01 X10*3/uL (0.00-0.03); Imm Gran Pct Auto 0.1 % (0.0-0.4); Immature Retic Fraction 14.5 % (2.3-13.4); Lymphocytes Percent Auto 27.4 % (20-40); Mean Corpuscular HGB Conc 32.8 g/dl (31.0-36.0); Mean Corpuscular Hemoglobin 28.9 pg (27.0-33.0); Mean Corpuscular Volume 88.3 fL (80.0-98.0); Mean Platelet Volume 10.7 fL (9.4-12.4); Monocytes Absolute Auto 0.4 X10*3/uL (0.1-1.2); Monocytes Percent Auto 5.8 % (2-11); Neutrophils Absolute Auto 4.7 x10*3/uL (2.0-8.3); Neutrophils Percent Auto 63.8 % (45-73); Platelet Count 216 X10*3/uL (160-400); Retic HGB Equivalent 33.1 pg (30.0-35.0); Reticulocyte Percent 1.4 % (0.5-1.8); Reticulocytes Absolute 0.065 X10*6/uL (0.026-0.095); White Blood Count 7.4 X10*3/uL (4.8-10.8)
[2025-04-20 14:11] LABS: Alanine Aminotransferase 22 U/L (0-40); Albumin Level 3.9 g/dL (3.5-5.0); Alkaline Phosphatase 68 U/L (39-117); Anion Gap 11 (12-20); Aspartate Amino Transferase 26 U/L (5-37); Bilirubin Total 0.6 mg/dL (0.0-1.0); Blood Urea Nitrogen 16 mg/dL (9-16); Carbon Dioxide 24 mmol/L (22-29); Chloride 110 mmol/L (96-108); Cholesterol 161 mg/dL (<200); Estimated Glomerular Filt Rate > 60; Glucose Fasting 126 mg/dL (60-99); HDL Cholesterol 52 mg/dL (>40); Iron 81 mcg/dL (45-160); LDL Cholesterol Calculated 86 mg/dL (<100); Lactate Dehydrogenase 233 U/L (118-273); Percent Iron Saturation 27 % (15-50); Potassium 4.6 mmol/L (3.3-5.1); Sodium 140 mmol/L (135-145); Total Iron Binding Capacity 301 mcg/dL (228-428); Total Protein 7.2 g/dL (6.5-8.0); Triglycerides 119 mg/dL (<150); Unsaturated Iron Binding 220 ug/dL
[2025-04-20 14:29] LABS: Ferritin 280 ng/mL (20-250)
[2025-04-20 14:36] LABS: Folate 10.8 ng/mL (> or = 4.0); Vitamin B12 359 pg/mL (200-900)
== END 2025-04-20 11:18 | disposition home or self-care (01) ==
LOC: HO.HMGCLDS 11:17
PROVIDERS: PCP Nurse Practitioner Family; Visit Provider Nurse Practitioner Family
DX: I10 Essential (primary) hypertension (principal); E78.5 Hyperlipidemia, unspecified; D64.9 Anemia, unspecified; Z13.30 Encounter for screening examination for mental health and behavioral disorders, unspecified
CPT/HCPCS: 36415; 80053; 80061; 82607; 82728; 82746; 83540; 83615; 85025; 85045; 96127; 99212

== ENCOUNTER → 2025-05-12 13:43 | Outpatient (BNVA) | payer MEDICARE, SELFPAY | PROVIDERS: PCP Nurse Practitioner Family | DX: E11.9 Type 2 diabetes mellitus without complications (principal) | CPT/HCPCS: 99211 ==

== ENCOUNTER 2025-06-27 06:56 | Outpatient (AMB) | payer MEDICARE, SELFPAY ==
--- NOTE | 2025-06-27 07:06 | MHC.PC.OV ---
Intake Visit Reasons: Diabetes followup Allergies No Known Allergies Allergy (Verified 06/27/25 07:07) Medication List - Last Reconciled 06/27/25 by ASHOK Mitchell- blood sugar diagnostic (OneTouch Verio test strips) Test blood sugar once a day blood-glucose meter (OneTouch Verio Flex Meter) As directed irbesartan 150 mg PO DAILY lancets (OneTouch Delica Plus Lancet) Test blood sugar once a day rosuvastatin 40 mg PO DAILY tirzepatide (Mounjaro) 2.5 mg (0.5 mL) subcut QWEEK Tobacco use date assessed: 04/20/25 Dental Screening Dental Screen Date: 04/20/25 HPI Diabetes followup HPI Details History of Present Illness The patient is a 69-year-old male presenting with newly diagnosed diabetes mellitus. His blood glucose levels have been ranging from 120s to 160s on average, with occasional readings in the 200s. He is actively working on dietary modifications and has consulted with a nurse navigator for guidance. The patient denies any history of pancreatitis or thyroid carcinoma, and reports no symptoms of neuropathy, polyuria, or polydipsia. He plans to schedule an eye examination independently as part of his preventative care. Review of Systems - Endocrine: Denies polyuria, polydipsia. - Neurological: Denies neuropathy. - General: Denies history of pancreatitis or thyroid carcinoma. Plan 1. Diabetes Mellitus The patient will be started on a GLP-1 receptor agonist, which is considered suitable given his body size and diabetes management needs. A microalbumin test and an HbA1c test will be conducted to monitor kidney function and long-term glucose control, respectively. The patient will follow up via telehealth to assess the effectiveness of the GLP-1 receptor agonist and adjust treatment as necessary. Discussion Notes I discussed with the patient the initiation of a GLP-1 receptor agonist for his diabetes management, emphasizing its suitability given his body size and potential benefits. We also reviewed the importance of monitoring kidney function and glucose control through microalbumin and HbA1c tests. The patient was advised to schedule an eye examination and to follow up via telehealth to evaluate the treatment's effectiveness. Patient Instructions - Start taking the prescribed GLP-1 receptor agonist as directed. - Schedule and attend an eye examination soon. - Follow up with telehealth appointments to monitor progress. [facility] Medical History Diverticulosis Tubular adenoma Murmur Osteoarthritis Elevated cholesterol HTN (hypertension) Surgical History Hx of tracheostomy H/O colonoscopy Family History Mother Diabetes Brother Diabetes Heart attack Father Heart attack Social History Housing: Other (mobile home) Patient Tobacco Use Status: Never used Tobacco e-Cigarette/Vaping Use: Never Used Second Hand Smoke Exposure: No service: No Current occupational status: employed Current occupation: [employer] Cognitive needs: No Hearing needs: No Vision needs: Yes Questionnaire Thrive Questionnaire Date Thrive assessed: 04/20/25 GLO-7 AMB Questionnaire GLO-7 Date GLO - 7 assessed: 04/20/25 Source: Developed by Drs. Erik Mullins, Lexi Sandoval, Silver Moses and colleagues, with an educational iwona from [employer]. Physical exam (Primary Care) Tobacco/Smoking Status: Tobacco use Status Tobacco use date assessed 04/20/25 06/27/25 07:07 Patient Tobacco Use Status Never used Tobacco 06/27/25 07:07 e-Cigarette/Vaping Use Never Used 06/27/25 07:07 Thrive Assessment: Date of Thrive Assessment Date Thrive assessed 04/20/25 06/27/25 07:07 Telehealth Telehealth Telehealth Platform: [facility] Location of provider rendering services: practice address Location of patient: address on file Patient Identification confirmed using: Name, : Yes Telehealth method: video Patient verbally consented to treatment: Yes Patient verbally consented to billing insurance company: Yes Patient informed of any privacy concerns related to visit: Yes Minutes spent on Phone/Video with Pt.: 13 Coding Level of Care Code Tele Est Pt Level 3 (24127) Diagnoses Newly diagnosed diabetes E11.9 Assessment & Plan Assessment & Plan (1) Newly diagnosed diabetes: Code(s): E11.9 - Type 2 diabetes mellitus without complications Category: Medical Plan . Orders: Orders Complete Blood Count Auto Diff Today E11.9 - Type 2 diabetes mellitus without complications Lipid Panel Today E11.9 - Type 2 diabetes mellitus without complications TSH reflex Free T4 Today E11.9 - Type 2 diabetes mellitus without complications Hemoglobin A1c Today E11.9 - Type 2 diabetes mellitus without complications Comprehensive [place]. Panel Fast Today E11.9 - Type 2 diabetes mellitus without complications UA CC w/rflx Micro + Cult Today E11.9 - Type 2 diabetes mellitus without complications Microalbumin, Random (w Creat) Today E11.9 - Type 2 diabetes mellitus without complications Medications: New tirzepatide (Mounjaro) for 4 weeks 2.5 mg (0.5 mL) subcut QWEEK 2 mL 0RF
== END 2025-06-27 11:48 | disposition home or self-care (01) ==
LOC: HO.HMCC 06:57
PROVIDERS: PCP Nurse Practitioner Family; Visit Provider Nurse Practitioner Family
DX: E11.9 Type 2 diabetes mellitus without complications (principal)

== ENCOUNTER 2025-06-28 13:45 | Outpatient (REF) | payer MEDICARE, SELFPAY ==
[2025-06-28 16:21] LABS: MANUAL DIFF FLAG NO
[2025-06-28 16:23] LABS: Hematocrit 43.8 % (42.0-52.0); Hemoglobin 14.2 g/dl (14.0-18.0); Imm Gran Abs Auto 0.01 X10*3/uL (0.00-0.03); Imm Gran Pct Auto 0.2 % (0.0-0.4); Lymphocytes Absolute Auto 2.0 X10*3/uL (1.2-4.9); Mean Corpuscular HGB Conc 32.4 g/dl (31.0-36.0); Mean Corpuscular Hemoglobin 29.0 pg (27.0-33.0); Mean Corpuscular Volume 89.4 fL (80.0-98.0); NRBC Abs Auto 0.000 X10*3/uL (0.0-0.012); NRBC Pct Auto 0.0 /100WBC (0.0-0.2); Platelet Count 236 X10*3/uL (160-400); Red Blood Count 4.90 X10*6/uL (4.60-5.80); White Blood Count 5.6 X10*3/uL (4.8-10.8)
[2025-06-28 17:01] LABS: Alanine Aminotransferase 21 U/L (0-40); Albumin Level 4.0 g/dL (3.5-5.0); Alkaline Phosphatase 66 U/L (39-117); Anion Gap 12 (12-20); Aspartate Amino Transferase 25 U/L (5-37); Blood Urea Nitrogen 13 mg/dL (9-16); Calcium 9.1 mg/dL (8.4-10.2); Carbon Dioxide 26 mmol/L (22-29); Chloride 103 mmol/L (96-108); Cholesterol 201 mg/dL (<200); Estimated Glomerular Filt Rate > 60; HDL Cholesterol 46 mg/dL (>40); Potassium 4.6 mmol/L (3.3-5.1); Sodium 136 mmol/L (135-145); Total Protein 7.0 g/dL (6.5-8.0); Triglycerides 157 mg/dL (<150)
[2025-06-28 18:24] LABS: Hemoglobin A1C 322.4917 umol/L; Total Hemoglobin (HGBA1C) 6178.7270 umol/L
[2025-06-28 19:15] LABS: Appearance Urine Clear; Glucose Urine UA Negative (Negative); PH 6.0 (5.0-9.0); Specific Gravity - Urine <= 1.005 (1.005-1.025)
== END 2025-06-28 13:46 | disposition home or self-care (01) ==
LOC: HO.HMGCLDS 13:45
PROVIDERS: PCP Nurse Practitioner Family; Visit Provider Nurse Practitioner Family
DX: E11.9 Type 2 diabetes mellitus without complications (principal)
CPT/HCPCS: 36415; 80053; 80061; 81003; 82043; 82570; 83036; 84443; 85025